=== PATIENT | male | born 1950 | race Caucasian/White ===

== ENCOUNTER 2021-08-23 11:38 | Emergency (ER) | payer OTHER, MEDICARE ==
[2021-08-23 12:19] VITALS: BP 129/60; PULSE 59; TEMP 98.7; BMI 25.3
[2021-08-23] MEDS ORDERED: CASIRIVIMAB/IMDEVIMAB 10 ML in SODIUM CHLORIDE 100 ML IVPB ONE (12:33)
== END 2021-08-23 15:16 | disposition home or self-care (01) ==
LOC: JCOVINFU 11:38
PROC: 3E033GC Introduction of Other Therapeutic Substance into Peripheral Vein, Percutaneous Approach (ICD-10-PCS; principal; 2021-08-23)
DX: U07.1 COVID-19 (principal)
CPT/HCPCS: 96365; 99284-25